=== PATIENT | female | born 1960 | race African-American/Black ===

== ENCOUNTER 2018-08-30 11:06 | Emergency (ER) | payer MEDICAID ==
[~2018-08-30] VITALS: Ht 172.7 cm; Wt 119.7 kg
[2018-08-30 11:42] VITALS: BP 114/65
[2018-08-30] MEDS ORDERED: IBUPROFEN 800 MG TAB PO ONE (12:30)
== END 2018-08-30 12:42 | disposition home or self-care (01) ==
LOC: ER 11:06
DX: S62.616A Displaced fracture of proximal phalanx of right little finger, initial encounter for closed fracture (principal); M19.90 Unspecified osteoarthritis, unspecified site; Y07.04 Female partner, perpetrator of maltreatment and neglect; Y93.89 Activity, other specified; Y99.8 Other external cause status; Y92.89 Other specified places as the place of occurrence of the external cause
CPT/HCPCS: 29125; 73130